=== PATIENT | female | born 1970 | race Caucasian/White ===

== ENCOUNTER 2017-08-20 15:36 | Outpatient (CLI) | payer OTHER | END 2017-08-20 17:26 | disposition home or self-care (01) | LOC: SMA 15:36 | PROVIDERS: ATTEND Family Medicine | DX: Z12.31 Encounter for screening mammogram for malignant neoplasm of breast (principal) | CPT/HCPCS: G0202 ==

== ENCOUNTER 2018-10-05 13:38 | Outpatient (CLI) | payer OTHER | END 2018-10-05 19:17 | disposition home or self-care (01) | LOC: SMA 13:38 | PROVIDERS: ATTEND Family Medicine | DX: Z12.31 Encounter for screening mammogram for malignant neoplasm of breast (principal) | CPT/HCPCS: 77067 ==

== ENCOUNTER 2023-03-25 14:13 | Outpatient (CLI) | payer OTHER | END 2023-03-25 21:00 | disposition home or self-care (01) | LOC: SMA 14:13 | PROVIDERS: ATTEND Specialist | DX: Z12.31 Encounter for screening mammogram for malignant neoplasm of breast (principal) | CPT/HCPCS: 77067 ==